=== PATIENT | male | born 1960 | race Caucasian/White ===

== ENCOUNTER 2016-08-09 19:33 | Emergency (ER) | payer BC ==
[2016-08-09 22:49] VITALS: BP 118/79
--- NOTE | 2016-08-11 09:45 | ER ---
DATE SEEN: 08/09/2016 HISTORY OF PRESENT ILLNESS: The patient is a 56-year-old gentleman who presents with lightheadedness. He is unclear what exactly happened to him. He said he was having a coughing spell. He has been having coughing fits for the past year, non-productive. He has seen his primary doctor about it, but they are not sure of the cause of it. He says he has had history of angioedema before in the past as well. Tonight, right after coughing, he felt lightheaded and ended up on the ground, his was not sure what had happened. There was a question whether or not it was a seizure-like activity. He has had these episodes in the past, but tonight's was a little more severe. He did have what seemed like a period of confusion for about 15 minutes afterwards. There was no bowel or bladder dysfunction. He has never had a known diagnosis of a seizure disorder before. MEDICATIONS: 1. Hydrochlorothiazide/lisinopril 20/25. 2. Metoprolol 25 mg. ALLERGIES: No known drug allergies. PAST MEDICAL HISTORY: Hypertension. REVIEW OF SYSTEMS: CONSTITUTION: No fevers or chills. RESPIRATORY: No shortness of breath. CARDIOVASCULAR: No chest pain. NEUROLOGICAL: No focal weaknesses or deficits. PHYSICAL EXAMINATION: VITAL SIGNS: He is afebrile. His pulse is 87, blood pressure 114/78, respiratory rate 16, 99% on room air. GENERAL: He is in no apparent acute distress. LUNGS: Clear to auscultation. HEART: Regular rate and rhythm. ABDOMEN: Soft, nontender, nondistended. HEENT: TMs are clear. Pupils equal, round, react to light. Extraocular muscles intact. Oropharyngeal region clear. NECK: Supple. No lymphadenopathy. EXTREMITIES: No cyanosis, clubbing, or edema. NEUROLOGICAL: Reflexes are normal. Strength is normal. Tone is normal. No ataxia, dysmetria. No focal neurological findings. LABORATORY DATA: His head CT was negative. EKG normal sinus rhythm without ST changes. His lab work is essentially within normal limits. Normal white count and hemoglobin. INR 1.0. Metabolic panel, creatinine 1.4, sodium 141, and ALT 31. EMERGENCY DEPARTMENT COURSE: The patient remained vitally stable. Repeat neurological exam remained benign and nonfocal. ASSESSMENT: Near syncope. PLAN: Symptoms likely related to coughing, likely had a vasovagal moment. He is a little bit on the dry side, so maybe low orthostatic as well. I encouraged him to discontinue lisinopril with his history of angioedema and cough. Continue his hydrochlorothiazide and follow up with primary physician Thursday. /[id number] LENA/HENOK
== END 2016-08-09 21:59 | disposition home or self-care (01) ==
LOC: FB.ED 19:33
DX: R55 Syncope and collapse (principal); I10 Essential (primary) hypertension
CPT/HCPCS: 36415; 70450; 80053; 81001; 85025; 85610; 93005; 99284